=== PATIENT | male | born 1975 | race Hispanic/Latino ===

== ENCOUNTER 2019-03-15 15:27 | Emergency (ER) | payer OTHER ==
[2019-03-15 15:39] VITALS: BP 145/94
--- NOTE | 2019-03-15 15:41 | Emergency Department Report ---
Blank Doc - Documentation Documentation: This is a 44-year-old male that presents with headache. Stated had a head inj ury that required stitches to be placed. Was seen in urgent care and told to come to the ED if symptoms are not resolved. This initial assessment/diagnostic orders/clinical plan/treatment(s) is/are subject to change based on patient's health status, clinical progression and re- assessment by fellow clinical providers in the ED. Further treatment and workup at subsequent clinical providers discretion. Patient/guardians urged not to elope from the ED as their condition may be serious if not clinically assessed and managed. Initial orders include: 1- Patient sent to [facility] for further evaluation and treatment 2- CT head
--- NOTE | 2019-03-15 18:28 | Emergency Department Report ---
ED Head Trauma HPI - General Chief complaint: Head Injury Stated complaint: HEAD INJURY Time Seen by Provider: 03/15/19 15:39 Source: patient Mode of arrival: Ambulatory Limitations: No Limitations - History of Present Illness Initial comments: Pt is a 44-year-old male who comes to us from his job he sent him here after sustaining a head injury on Wednesday. Wednesday he was seen at [facility] after hitting his head on a steel beam and they sutured his head. They told him to come to the ER because he had progressive headaches. They sent him for CT scan of his head. Patient states Motrin and Tylenol is not helping. He is requesting something stronger for pain. MD Complaint: head injury - Related Data Previous Rx's Medication Instructions Recorded Last Taken Type Cyclobenzaprine [Flexeril] 10 mg PO TID PRN #30 tablet 01/11/14 Unknown Rx Ibuprofen [Motrin] 800 mg PO TID PRN #30 tablet 01/11/14 Unknown Rx Oxycodone HCl/Acetaminophen 1 each PO Q6HR PRN #20 tablet 01/11/14 Unknown Rx [Percocet 7.5-325 mg] Prednisone [Prednisone 10 mg 10 mg PO .TAPER #1 tab.ds.pk 01/17/15 Unknown Rx (6-Day Pack, 21 Tabs)] Allergies/Adverse reactions: Allergies Allergy/AdvReac Type Severity Reaction Status Date / Time No Known Allergies Allergy Verified 01/17/15 09:06 ED Review of Systems ROS: Stated complaint: HEAD INJURY Other details as noted in HPI Comment: All other systems reviewed and negative ED Past Medical Hx - Past Medical History Previous Medical History?: No Additional medical history: BULGING DISCS L 4; L 5 - Surgical History Past Surgical History?: No - Family History Family history: no significant - Social History Smoking Status: Current Every Day Smoker Substance Use Type: Alcohol - Medications Home Medications: Home Medications Medication Instructions Recorded Confirmed Last Taken Type Cyclobenzaprine [Flexeril] 10 mg PO TID PRN #30 tablet 01/11/14 Unknown Rx Ibuprofen [Motrin] 800 mg PO TID PRN #30 tablet 01/11/14 Unknown Rx Oxycodone HCl/Acetaminophen 1 each PO Q6HR PRN #20 tablet 01/11/14 Unknown Rx [Percocet 7.5-325 mg] Prednisone [Prednisone 10 mg 10 mg PO .TAPER #1 tab.ds.pk 01/17/15 Unknown Rx (6-Day Pack, 21 Tabs)] ED Physical Exam - General Limitations: No Limitations General appearance: alert, in no apparent distress - Head Head exam: Present: normocephalic - Eye Eye exam: Present: PERRL, EOMI - ENT ENT exam: Present: mucous membranes moist - Neck Neck exam: Present: normal inspection - Respiratory Respiratory exam: Present: normal lung sounds bilaterally - Cardiovascular Cardiovascular Exam: Present: regular rate - GI/Abdominal GI/Abdominal exam: Present: soft - Extremities Exam Extremities exam: Present: normal inspection, full ROM - Back Exam Back exam: Present: normal inspection, full ROM - Neurological Exam Neurological exam: Present: alert, oriented X3 - Psychiatric Psychiatric exam: Present: normal affect, normal mood - Skin Skin exam: Present: warm, dry ED Course Vital Signs 03/15/19 03/15/19 15:35 18:45 Temperature 97.9 F Pulse Rate 89 Respiratory 20 16 Rate Blood Pressure 145/94 O2 Sat by Pulse 96 Oximetry - Radiology Data Radiology results: report reviewed, image reviewed - Medical Decision Making CT noted no focal neuro def medicated in ER for pain dc home with follow up with his employer Vital Signs 03/15/19 15:35 Temperature 97.9 F Pulse Rate 89 Respiratory 20 Rate Blood Pressure 145/94 O2 Sat by Pulse 96 Oximetry - Core Measures Measure Exclusions: not indicated - NEXUS Criteria Focal neurological deficit present: No Midline spinal tenderness present: No Altered level of consciousness: No Intoxication present: No Distracting injury present: No NEXUS results: C-Spine can be cleared clinically by these results. Imaging is not required. Critical care attestation.: If time is entered above; I have spent that time in minutes in the direct care of this critically ill patient, excluding procedure time. ED Disposition Clinical Impression: Head injury Disposition: DC-01 TO HOME OR SELFCARE Is pt being admited?: No Does the pt Need Aspirin: No Condition: Stable Instructions: Acute Headache (ED) Additional Instructions: follow up with your employer to determine next steps ice to head may help pain motrin or tylenol for pain see employer for referral to neuro/PCP if you need stronger pain meds because that may impair your ability to do your job. Referrals: PRIMARY CARE, [Primary Care Provider] - 3-5 Days Time of Disposition: 18:37
[2019-03-15] MEDS ORDERED: NORCO 7.5/325 PO ONE (18:37)
--- NOTE | 2019-03-15 19:01 | Cat Scan Report ---
PROCEDURE: CT HEAD/BRAIN WO CON TECHNIQUE: CT images of the head were obtained without the use of IV contrast HISTORY: headache COMPARISONS: None available FINDINGS: No CT evidence of intracranial mass, hemorrhage, acute territorial infarction, or hydrocephalus. Intr acranial arteries are symmetric in density. Calvarium is intact. Visualized paranasal sinuses and mas toids are aerated. IMPRESSION: No CT evidence of acute abnormality. This document is electronically signed by Kayley Owen MD., Mar 15 2019 06:59:29 PM ET
== END 2019-03-15 19:20 | disposition home or self-care (01) ==
LOC: ED 15:27
DX: S09.90XA Unspecified injury of head, initial encounter (principal); F17.200 Nicotine dependence, unspecified, uncomplicated; W22.8XXA Striking against or struck by other objects, initial encounter; Y93.89 Activity, other specified; Y92.89 Other specified places as the place of occurrence of the external cause; Y99.8 Other external cause status
CPT/HCPCS: 70450; 99283